=== PATIENT | male | born 1980 | race Caucasian/White ===

== ENCOUNTER 2016-09-14 02:09 | Inpatient (IN) | payer BC ==
[2016-09-14] MEDS ORDERED: NS 0.9% 1000 ML* 1,000 ML IV ONE ×2 (02:11→11:29)
[2016-09-14] MEDS ORDERED: Naloxone* 0.4 MG/ML 1 ML VIAL IV ONE (02:11)
--- NOTE | 2016-09-14 02:28 | ED ---
sai Kay Timothy, scribed for Dipak Price MD on 09/14/16 at 0216 . Substance Abuse/Use - HPI Summary HPI Summary: LEVEL V CAVEAT: Pt is unresponsive and unable to give an accurate Hx. Dawson Abbasi is a 35 yo male presenting to [facility] overdosed on morphine, oxycodon , and spiced rum. EMS states he attempted suicide. - History Of Current Complaint Stated Complaint: OVERDOSE Time Seen by Provider: 09/14/16 02:10 Hx Obtained From: Patient Onset/Duration of Drug/ETOH Abuse: Minutes Ingestion History: Type/Name Of Drug - morphine, oxycodone, EtOH Overdose Characteristics: Oral Severity Initially: Moderate Severity Currently: Moderate Character: Stuporous PMH/Surg Hx/FS Hx/Imm Hx - Family History Known Family History: Positive: Unknown - Pt is unable to give an accurate FHx - Additional Comments History Additional Comments: LEVEL V CAVEAT: PT IS UNABLE TO GIVE AN ACCURATE HX Review of Systems - ROS Summary Review of Systems Summary: LEVEL V CAVEAT: Pt is overdosed and unable to review systems All Other Systems Reviewed And Are Negative: No Physical Exam Triage Information Reviewed: Yes Vital Signs On Initial Exam: Initial Vitals Temp Pulse Resp BP Pulse Ox 98 F 62 16 119/98 98 09/14/16 02:10 09/14/16 02:10 09/14/16 02:10 09/14/16 02:10 09/14/16 02:10 Vital Signs Reviewed: Yes Completion Of Physical Exam Limited Due To: Altered Mental Status - easily arousable, Extremis Appearance: Positive: No Pain Distress Skin: Positive: Warm Eyes: Positive: SAQIB ENT: Positive: Hearing grossly normal Neck: Positive: Supple Respiratory/Lung Sounds: Positive: Breath Sounds Present Cardiovascular: Positive: RRR Abdomen Description: Positive: Nontender, Soft Bowel Sounds: Positive: Present Musculoskeletal: Positive: Strength/ROM Intact Diagnostics - Vital Signs Vital Signs Temp Pulse Resp BP Pulse Ox 09/14/16 02:10 98 F 62 16 119/98 98 - Laboratory Result Diagrams: 09/14/16 02:20 09/14/16 02:20 Lab Statement: Any lab studies that have been ordered have been reviewed, and results considered in the medical decision making process. - EKG 0215 Cardiac Rate: NL EKG Rhythm: Sinus Rhythm EKG Interpretation: NSR @88 BPM. Normal EKG. Re-Evaluation - Re-Evaluation First Eval Re-Evaluation Time: 06:00 - medically cleared, 90 minutes off narcan Change: Improved Course/Dx - Course Assessment/Plan: Dawson Abbasi is a 35 yo male presenting [facility] overdosed on morphine, oxycodone, and EtOH, per EMS. - Diagnoses Provider Diagnoses: Suicide attempt - Critical Care Time Critical Care Time: 75-104 min Discharge - Discharge Plan Condition: Fair Disposition: ADMITTED TO [facility] The documentation as recorded by the sai meeks Timothy accurately reflects the service I personally performed and the decisions made by , Dipak Price MD.
[2016-09-14 02:54] LABS: Hematocrit 46 % (42-52); Hemoglobin 16.1 g/dl (14.0-18.0); Mean Corpuscular HGB Conc 35 g/dl (31-36); Mean Corpuscular Hemoglobin 33 pg (27-31); Mean Corpuscular Volume 95 fL (80-94); Mean Platelet Volume 9 um3 (7.4-10.4); Red Blood Count 4.86 10^6/ul (4.0-5.4); Red Cell Distribution Width 14 % (10.5-15); White Blood Count 6.1 10^3/ul (3.5-10.8)
[2016-09-14] MEDS ORDERED: Naloxone* 2 MG in NS 0.9% 250 ML* 245 ML IV SCH (03:00)
[2016-09-14] MEDS ORDERED: NALOXONE DRIP for Opiate Reversal - ED ONLY IV SCH ×2 (03:00)
[2016-09-14 03:07] LABS: ALT 87 U/L (7-52); AST 45 U/L (13-39); Albumin 4.5 g/dL (3.2-5.2); Alkaline Phosphatase 52 U/L (34-104); Anion Gap 8 mmol/L (2-11); BUN/Creatinine Ratio 8.5 (8-20); Blood Urea Nitrogen 8 mg/dL (6-24); CO2 Carbon Dioxide 22 mmol/L (22-32); Calcium 9.1 mg/dL (8.6-10.3); Chloride 107 mmol/L (101-111); EGFR African American 116.1 (>60); EGFR Non-African American 90.3 (>60); Globulin 3.2 g/dL (2-4); Glucose 85 mg/dL (70-100); Potassium 3.4 mmol/L (3.5-5.0); Sodium 137 mmol/L (133-145); Total Protein 7.7 g/dL (6.4-8.9)
[2016-09-14 03:13] LABS: Acetaminophen < 15 mcg/mL; Alcohol 220 mg/dL (<10); Salicylate < 2.50 mg/dL (<30)
[2016-09-14] MEDS ORDERED: LORazepam TAB(*) 1 MG PO ONE (09:04)
[2016-09-14] MEDS ORDERED: Ondansetron INJ* 2 MG/ML VIAL ONE (11:24)
[2016-09-14] MEDS ORDERED: PROCHLORPERAZINE INJ 5 MG/ML 2 ML VIAL IV PRN (11:29)
[2016-09-14] MEDS ORDERED: Thiamine IV* 100 MG, Folic Acid IV* 1 MG, Multiple Vitamin IV ADULT* 10 ML in NS 0.9% 1... IV ONE (11:29)
[2016-09-14] MEDS ORDERED: Acetaminophen TAB* 325 MG PO PRN (11:29)
[2016-09-14] MEDS ORDERED: Potassium Chloride LIQUID* 20 MEQ PACKET PO ONE (11:33)
[2016-09-14] MEDS ORDERED: Albuterol 2.5 MG/3 ML NEB.SOL* (0.083%) INH PRN (11:43)
[2016-09-14] MEDS: Ondansetron INJ* 2 MG/ML VIAL IV PRN (11:49)
[2016-09-14 11:55] LABS: Hematocrit 46 % (42-52); Hemoglobin 15.6 g/dl (14.0-18.0); Mean Corpuscular HGB Conc 34 g/dl (31-36); Mean Corpuscular Hemoglobin 33 pg (27-31); Mean Corpuscular Volume 97 fL (80-94); Mean Platelet Volume 8 um3 (7.4-10.4); Red Blood Count 4.76 10^6/ul (4.0-5.4); Red Cell Distribution Width 13 % (10.5-15); White Blood Count 5.1 10^3/ul (3.5-10.8)
[2016-09-14] MEDS ORDERED: LORazepam INJ* 2 MG/ML 1 ML VIAL IV SCH (12:00)
[2016-09-14 12:11] LABS: EGFR African American 123.7 (>60); EGFR Non-African American 96.2 (>60); Potassium 3.6 mmol/L (3.5-5.0)
[2016-09-14] MEDS: KCL 10 MEQ/50 ML IVPREMIX* 10 MEQ/50 ML BAG IV SCH ×3 (13:56→18:26)
[2016-09-14] MEDS: LORazepam INJ* 2 MG/ML 1 ML VIAL IV SCH ×2 (13:58→21:35)
[2016-09-14] MEDS ORDERED: Heparin VIAL(*) 5000 UNITS/ML VIAL (FIVE THOUSAND) SUBCUT SCH (14:00)
[2016-09-14] MEDS: Nicotine PATCH 21 MG/24 HR* PATCH TRANSDERM SCH (14:07)
--- NOTE | 2016-09-14 14:31 | HP ---
HISTORY AND PHYSICAL: DATE OF ADMISSION: 09/14/2016. PRIMARY CARE PROVIDER: None. ATTENDANCE PHYSICAL WHILE IN THE HOSPITAL: Noé Darnell MD * (report dictated by Tri Castellano NP). CHIEF COMPLAINT: 1. Suicidal ideation. 2. EtOH abuse. HISTORY OF PRESENT ILLNESS: Mr. Abbais is a 35-year-old male patient; he has a history of asthma. In addition to this, he has a history of depression. He has had one suicide attempt in the past. He comes in today stating that he has been feeling more depressed over the last couple of weeks. He states his fiancee recently left him. In addition to this he recently lost his job and the stress was mounting to the point where he wanted to take his life. He does not remember what time he did this but he states, he took a handful of OxyContin and he took a handful of morphine and he drank enough alcohol so that he could take his life. Fortunately, a friend of his found him, called 911 and he was brought into the hospital last night. The patient did receive several doses of Narcan but because of the fact that he did take long extended acting morphine, MS Contin and OxyContin, it was felt that the hospitalist service should admit him for medical observation and also was noted in the ER that he was showing early signs of EtOH withdrawal which he has had in the past. He stated he does feel shaky. He has had hallucinations in the past with withdrawal but no seizures. He denies having any chest pain. He does state he feels nauseous and he has vomited a couple of times in the ER here today and he states that he was cramping. He denies having any recent cough, fevers, no shortness of breath. He denies any abdominal discomfort. He was evaluated again in the ER. There was concern that he was not medically stable for psychiatric evaluation, so the hospitalist service was asked to evaluate for admission. REVIEW OF SYSTEMS: There is no documented fever. He denied having any significant weight change. There was no double vision. There is no ear discharge. There is no rhinorrhea. There is no sore throat. No thyroid enlargement. Denies having any chest pain. There is no orthopnea and no nocturnal dyspnea. There is no abdominal pain. There was nausea. There was vomiting. There was no dysuria, no frequency. There is no loss of consciousness or pruritus. There are no skin ulcerations. Review of 14 systems completed, all others were negative. PAST MEDICAL HISTORY: Significant for; 1. Asthma. 2. Depression. PAST SURGICAL HISTORY: He has had a hernia repair. FAMILY HISTORY: Father has a history of psychiatric disorder, he is unsure as to what. The father also had history of heart disease. Mother's history was reviewed and is not contributory. SOCIAL HISTORY: He is a pack-a-day smoker. He smoked for 20 plus years. He does admit to using heroin, crack, and marijuana. Most recently he has used crack cocaine. The patient also does admit to drinking about a gallon of rum daily. He does admit to having history of DTs in the past as well. He does not appoint a surrogate decision maker at this point. ALLERGIES: His allergy to medications include an unknown type of anesthetic. HOME MEDICATIONS: Denied. PHYSICAL EXAMINATION GENERAL: At this time, Mr. Abbasi is a 35-year-old male patient, he appears well nourished, well developed. He does not appear to be in any acute distress. VITAL SIGNS: Blood pressure 127/75, pulse of 92, respirations 18, O2 sat 94% and his temperature was 98. HEENT: Head atraumatic, normocephalic. Eyes: EOMs intact. Sclerae anicteric. Throat: Oral mucosa appears to be moist. No pharyngeal erythema. NECK: Supple. HEART: Sounds S1, S2. Regular rate and rhythm. No murmurs, rubs or gallops. ABDOMEN: Soft, flat nontender. Bowel sounds present. EXTREMITIES: Pulses were 2+ throughout. Able to move all 4 extremities. 5/5 strength. NEUROLOGIC: The patient is awake. He is alert. He is oriented x3. Tongue is midline. No gross focal deficits. SKIN: Intact. DIAGNOSTIC STUDIES/LAB DATA: Labs today revealed a WBC of 6.1, RBC of 4.86, hemoglobin 16.1, hematocrit 46, and platelet count of 204. His sodium was 137, potassium 3.4, chloride of 107, bicarb 22, BUN 8, creatinine of 0.94, glucose 85 , lactate 2.2, calcium 9.1, total bili 0.4, AST 45, ALT 87, albumin 4.5. Toxicology showed a alcohol level of 220. Salicylates and acetaminophen were negative. He did have an EKG obtained today. Unfortunately, I do not have the previous one for comparison, but the EKG today showed a sinus rhythm at the rate of 88. He had an intraventricular conduction delay. He had minimal elevation in lead 2 only and lead 3 and aVF, but again no previous for comparison, may be early repol. Old medical records reviewed. ASSESSMENT AND PLAN: Mr. Abbasi is a 35-year-old male patient coming in to the ER today with complaints of suicidal ideation, now showing signs of EtOH withdrawal. In addition to this, also did take long-acting opiate. Hospitalist service was asked to evaluate for admission, he will be admitted under observation status for: 1. Overdose: At this point, we will go ahead and monitor his respiratory status. We will put him on continuous pulse ox for 24 hours to monitor. He appears to be awake now and alert. He had no drowsiness, so we will continue to monitor. Due to the suicidal ideation, I will put him on one-to-one suicide watch. In addition to this, we will get a psychiatric consult when able. 2. EtOH withdrawal: He is exhibiting early signs. He is a little tremulous. He does have some nausea and vomiting, which again may be related to the opiates and the alcohol withdrawal. At this point, I will go ahead and put him on Protonix IV daily, put him on the WAM protocol. In addition to this we will give him a banana bag. We will go ahead and initiate the standing Ativan as well. We will hydrate the patient and we will continue to monitor. 3. Depression. Again, I will get a consult from psychiatric services. 4. Asthma. I have ordered p.r.n. albuterol. 5. DVT prophylaxis. We will place him on SCDs. 6. Tobacco abuse. I have ordered a Nicotine patch. 7. Cramping. Again, this is probably related to hypokalemia. I am also checking his magnesium, I am going to replace his potassium with IV and p.o. potassium. We will hydrate him and we will give him banana bag and we will continue to follow. 8. Elevated LFTs probably secondary to EtOH use. We will monitor these. We will repeat them in the morning. 9. Code status: Full code. TIME SPENT: Time spent on admission was approximately 60 minutes; greater than half the time time was spent [id number] with the patient obtaining my history and physical, the other half time is spent going over the plan of the care patient and implementing plan of care. I discussed the plan of care with my attending, Dr. Darnell. He is in agreement. TRI CASTELLANO, FURNACE CHARGER [id number]/[facility] #: [id number] KEVIN
[2016-09-14] MEDS: Pantoprazole IV* 40 MG IV SCH (14:58)
[2016-09-14] MEDS: NS 0.9% 1000 ML* 1,000 ML IV SCH (15:55)
[2016-09-14] MEDS ORDERED: KCL 10 MEQ/50 ML IVPREMIX* 10 MEQ/50 ML BAG ONE (18:22)
[2016-09-14] MEDS: Nicotine Patch Removal NOTE FOLLOW UP SCH (21:36)
[2016-09-15] MEDS: NS 0.9% 1000 ML* 1,000 ML IV SCH ×3 (01:50→21:36)
[2016-09-15] MEDS: LORazepam INJ* 2 MG/ML 1 ML VIAL IV SCH ×2 (05:30→17:00)
[2016-09-15 06:24] LABS: Hematocrit 42 % (42-52); Hemoglobin 14.1 g/dl (14.0-18.0); Mean Corpuscular HGB Conc 34 g/dl (31-36); Mean Corpuscular Hemoglobin 33 pg (27-31); Mean Corpuscular Volume 97 fL (80-94); Mean Platelet Volume 8 um3 (7.4-10.4); Red Blood Count 4.32 10^6/ul (4.0-5.4); Red Cell Distribution Width 13 % (10.5-15)
[2016-09-15 06:36] LABS: Albumin 3.3 g/dL (3.2-5.2); BUN/Creatinine Ratio 12.9 (8-20); Calcium 8.5 mg/dL (8.6-10.3); Direct Bilirubin 0.1 mg/dL (0.03-0.18); EGFR African American 117.6 (>60); EGFR Non-African American 91.4 (>60); Globulin 2.5 g/dL (2-4); Indirect Bilirubin 0.6 mg/dL (0.3-1.0); Potassium 3.8 mmol/L (3.5-5.0); Total Bilirubin 0.7 mg/dL (0.2-1.0); Total Protein 5.8 g/dL (6.4-8.9)
[2016-09-15] MEDS: Nicotine PATCH 21 MG/24 HR* PATCH TRANSDERM SCH (09:26)
[2016-09-15] MEDS: Multivitamins/Minerals TAB PO SCH (09:26)
[2016-09-15] MEDS: Thiamine TAB* 100 MG TAB PO SCH (09:26)
[2016-09-15] MEDS: Folic Acid TAB* 1 MG PO SCH (09:27)
[2016-09-15] MEDS: Acetaminophen TAB* 325 MG PO PRN (12:58)
[2016-09-15] MEDS: Ondansetron INJ* 2 MG/ML VIAL IV PRN ×2 (12:59→21:31)
[2016-09-15] MEDS: Pantoprazole IV* 40 MG IV SCH (12:59)
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
--- NOTE | 2016-09-15 15:37 | PN ---
Subjective Date of Service: 09/15/16 Interval History: Patient seen and examined at bedside. Pt denies suicidal ideation at this time. Denies fever, chills, chest discomfort, V/D. Pt reports shortness of breath at his baseline, and continues to have nausea. Family History: Unchanged from Admission Social History: Unchanged from Admission Past Medical History: Unchanged from Admission Objective Active Medications: Acetaminophen (Tylenol Tab*) 650 mg PO Q4H PRN Reason: FEVER/PAIN Albuterol (Ventolin 2.5 Mg/3 Ml Neb.Stella*) 2.5 mg INH Q2H PRN Reason: SOB/ WHEEZING Folic Acid (Folvite Tab*) 1 mg PO DAILY [facility] Naloxone HCl 2 mg/ Sodium (Chloride) 250 mls @ 60 mls/hr IV .PER RATE [facility] Reason: Protocol Sodium Chloride (Ns 0.9% 1000 Ml*) 1,000 mls @ 100 mls/hr IV PER RATE [facility] Lorazepam (Ativan Inj*) 0 mg IV .PER WAM SCORE [facility] Lorazepam (Ativan Inj*) 1 mg IV Q12H [facility] Taper Stop: 09/17/16 07:59 Multivitamins/Minerals (Theragran/Minerals Tab*) 1 tab PO DAILY [facility] Nicotine (Nicotine Patch 21 Mg/24 Hr*) 1 patch TRANSDERM Q24HR [facility] Ondansetron HCl (Zofran Inj*) 4 mg IV Q6H PRN Reason: NAUSEA Pantoprazole Sodium (Protonix Iv*) 40 mg IV Q24H [facility] Pharmacy Profile Note (Nicotine Patch Removal Note*) 1 note FOLLOW UP 2100 [facility] Prochlorperazine Edisylate (Compazine Inj*) 5 mg IV Q6H PRN Reason: NAUSEA/ VOMITING Thiamine HCl (Vitamin B-1 Tab*) 100 mg PO DAILY [facility] Vital Signs 09/15/16 15:13 Pulse Rate 96 Respiratory 16 Rate O2 Sat by Pulse 95 Oximetry Oxygen Devices in Use Now: None Eyes: No Scleral Icterus, PERRLA Ears/Nose/Mouth/Throat: NL Teeth, Lips, Gums, Mucous Membranes Moist Neck: NL Appearance and Movements; NL JVP, Trachea Midline Respiratory: Symmetrical Chest Expansion and Respiratory Effort, Clear to Auscultation Cardiovascular: NL Sounds; No Murmurs; No JVD, RRR Abdominal: NL Sounds; No Tenderness; No Distention Extremities: No Edema Skin: No Rash or Ulcers Neurological: Alert and Oriented x 3, NL Muscle Strength and Tone Lines/Tubes/Other Access: Clean, Dry and Intact Peripheral IV - site benign Nutrition: Taking PO's Result Diagrams: 09/15/16 05:58 09/15/16 05:58 Assess/Plan/Problems-Billing Assessment: Mr. Abbasi is a 35 yo male with PMH significant for asthma and depression who presented to the emergency room for suicidal ideation and overdose of oxycontin and morphine and was found to have signs of alcohol withdrawal. - Patient Problems (1) Overdose Code(s): T50.901A - POISONING BY UNSP DRUG/MEDS/BIOL SUBST, ACCIDENTAL, INIT SNOMED Code(s): 10412362 Comment: - Psychiatric consult, input appreciated - Pt denies suicidal ideation at this time - D/C 1:1 - Will trial medications for depression per Psychiatry - No signs of respiratory distress at this time (2) Alcohol withdrawal Code(s): F10.239 - ALCOHOL DEPENDENCE WITH WITHDRAWAL, UNSPECIFIED SNOMED Code (s): 955578759 Comment: - WAM score 1-8 (8 was upon arrival to the unit yesterday) - Continue WAM protocol at this time (3) Depression Code(s): F32.9 - MAJOR DEPRESSIVE DISORDER, SINGLE EPISODE, UNSPECIFIED SNOMED Code(s): 37644327 Comment: - Appreciate Psychiatric input - Trial Sertraline and Quetiapine per Psychiatry (4) Asthma Code(s): J45.909 - UNSPECIFIED ASTHMA, UNCOMPLICATED SNOMED Code(s): 451408359 Comment: - Pt reports shortness of breath at baseline - Continue PRN albuterol (5) Nicotine abuse Code(s): Z72.0 - TOBACCO USE SNOMED Code(s): 06329508 Comment: - Continue Nicotine Patch (6) DVT prophylaxis Code(s): LKP2309 - SNOMED Code(s): 898061128 Comment: - SCDs (7) Full code status Code(s): Z78.9 - OTHER SPECIFIED HEALTH STATUS SNOMED Code(s): 193285825 Status and Disposition: OBV to Inpatient. Plan for discharge to Inpatient drug and alcohol treatment center.
[2016-09-15] MEDS: Sertraline* 50 MG TAB PO SCH (16:59)
[2016-09-15] MEDS ORDERED: QUEtiapine TAB* 100 MG PO SCH (21:00)
[2016-09-15] MEDS: Nicotine Patch Removal NOTE FOLLOW UP SCH (21:31)
[2016-09-16] MEDS: LORazepam INJ* 2 MG/ML 1 ML VIAL IV SCH ×2 (03:44→16:29)
[2016-09-16] MEDS: NS 0.9% 1000 ML* 1,000 ML IV SCH (08:43)
[2016-09-16] MEDS: Sertraline* 50 MG TAB PO SCH (08:44)
[2016-09-16] MEDS: Thiamine TAB* 100 MG TAB PO SCH (08:44)
[2016-09-16] MEDS: Multivitamins/Minerals TAB PO SCH (08:44)
[2016-09-16] MEDS: Folic Acid TAB* 1 MG PO SCH (08:44)
[2016-09-16] MEDS: Nicotine PATCH 21 MG/24 HR* PATCH TRANSDERM SCH (08:45)
[2016-09-16] MEDS: Acetaminophen TAB* 325 MG PO PRN (13:41)
[2016-09-16] MEDS: Pantoprazole IV* 40 MG IV SCH (13:41)
--- NOTE | 2016-09-16 15:56 | CONSULT ---
Identification - Patient Identification Reason for Psychiatric Consultation: Suicidal Ideation -: Patient is a 35 year old, M admitted on 09/15/16. - MHU Identification Employment Status: Unemployed Hx Psychiatric Hospitalization: No History - Objective HPI: The patient reports that he is tolerating his new medications, quetiapine and sertraline, well and denies untoward effects. He continues to report resolution of the suicidal ideations he initially presented with, and is still requesting transfer to a substance abuse rehab facility. His affect does appear brighter today and he is talking, apparently, with his ex-girlfriend on the cell phone as I enter. The patient continues to sleep poorly and is in favor of increasing his quetiapine dose tonight. Paranoia is still present, although reduced. Exam Appearance: Well Developed/Nourished Hygiene: Normal Grooming: Disheveled Psychomotor Activities: Normal Exhibits Abnormal Movement: No Attitude and Relatedness: Cooperative Eye Contact: Good - Speech Quality: Unpressured Latencies: Normal Quantity: Appropriate Patient's Decription of Mood: "Okay" Observed Affect: Fair Affect Consistent with: Euthymia Patient's Thought Process: Coherent Thought Content: Yes Paranoid Ideation, No Passive Wish, No Suicidal Planning, No Homicidal Ideation Experiencing Hallucinations: No, Sensorium is Clear Type of Hallucinations: Visual: No, Auditory: No, Command: No Level of Consciousness: Alert Orientation: Yes Intact, Yes Orientated to Time, Yes Orientated to Place, Yes Orientated to Person Impulse Control: Tenuous Insight and Judgement: Fair Impression - Impression Clinical Impression: 35 y.o. single, white male with a history of polysubstance abuse and chronic paranoia, even when sober, is admitted to medicine in acute alcohol withdrawal and is being consulted on by psychiatry due to dysthymic mood, persecutory ideations and SI. Merits Inpatient Hospitalization: No Problem List - MHU Problems Type of Problem: Mood Status of Problem: Active Plan - Treatment Plan Treatment Plan: We have started the patient on quetiapine and sertraline to treat apparent schizoaffective disorder. We'll increase quetiapine tonight to 200mg PO qhs and see if this helps with insomnia and paranoia. The patient drug and alcohol abuse problems are out of control and he awaits referral to an inpatient drug rehab setting. Psychiatry will continue to follow. Continued Medication Management: Start Medication Medications: Current Medications Acetaminophen (Tylenol Tab*) 650 mg PO Q4H PRN PRN Reason: FEVER/PAIN Last Admin: 09/16/16 13:41 Dose: 650 mg Albuterol (Ventolin 2.5 Mg/3 Ml Neb.Stella*) 2.5 mg INH Q2H PRN PRN Reason: SOB/WHEEZING Folic Acid (Folvite Tab*) 1 mg PO DAILY [facility] Last Admin: 09/16/16 08:44 Dose: 1 mg Naloxone HCl 2 mg/ Sodium (Chloride) 250 mls @ 60 mls/hr IV .PER RATE [facility] PRN Reason: Protocol Last Admin: 09/14/16 02:45 Dose: 60 mls/hr Sodium Chloride (Ns 0.9% 1000 Ml*) 1,000 mls @ 100 mls/hr IV PER RATE [facility] Last Admin: 09/16/16 08:43 Dose: 100 mls/hr Lorazepam (Ativan Inj*) 0 mg IV .PER WAM SCORE [facility] PRN Reason: Protocol Last Admin: 09/14/16 14:01 Dose: 1 mg Lorazepam (Ativan Inj*) 1 mg IV Q12H [facility] PRN Reason: Taper Stop: 09/17/16 07:59 Last Admin: 09/16/16 03:44 Dose: 1 mg Multivitamins/Minerals (Theragran/Minerals Tab*) 1 tab PO DAILY [facility] Last Admin: 09/16/16 08:44 Dose: 1 tab Nicotine (Nicotine Patch 21 Mg/24 Hr*) 1 patch TRANSDERM Q24HR [facility] Last Admin: 09/16/16 08:45 Dose: 1 patch Ondansetron HCl (Zofran Inj*) 4 mg IV Q6H PRN PRN Reason: NAUSEA Last Admin: 09/15/16 21:31 Dose: 4 mg Pantoprazole Sodium (Protonix Iv*) 40 mg IV Q24H [facility] Last Admin: 09/16/16 13:41 Dose: 40 mg Pharmacy Profile Note (Nicotine Patch Removal Note*) 1 note FOLLOW UP 2100 [facility] Last Admin: 09/15/16 21:31 Dose: 1 note Prochlorperazine Edisylate (Compazine Inj*) 5 mg IV Q6H PRN PRN Reason: NAUSEA/VOMITING Last Admin: 09/14/16 13:53 Dose: 5 mg Quetiapine Fumarate (Seroquel Tab*) 100 mg PO BEDTIME [facility] Last Admin: 09/15/16 21:31 Dose: 100 mg Sertraline HCl (Zoloft*) 50 mg PO DAILY [facility] Last Admin: 09/16/16 08:44 Dose: 50 mg Thiamine HCl (Vitamin B-1 Tab*) 100 mg PO DAILY [facility] Last Admin: 09/16/16 08:44 Dose: 100 mg - Discharge Plan Discharge Plan: Drug/Alcohol Rehab
--- NOTE | 2016-09-16 18:47 | PN ---
Subjective Date of Service: 09/16/16 Interval History: Patient seen and examined at bedside. Pt states that is no longer suicidal. Pt states that he has been talking with his girlfriend and he may be interested in outpatient rehab. Denies fever, chills, shortness of breath, chest discomfort, V /D. Pt reports insomnia, mild tremors and nausea. Family History: Unchanged from Admission Social History: Unchanged from Admission Past Medical History: Unchanged from Admission Objective Active Medications: Acetaminophen (Tylenol Tab*) 650 mg PO Q4H PRN Reason: FEVER/PAIN Albuterol (Ventolin 2.5 Mg/3 Ml Neb.Stella*) 2.5 mg INH Q2H PRN Reason: SOB/ WHEEZING Folic Acid (Folvite Tab*) 1 mg PO DAILY [facility] Naloxone HCl 2 mg/ Sodium (Chloride) 250 mls @ 60 mls/hr IV .PER RATE [facility] Reason: Protocol Sodium Chloride (Ns 0.9% 1000 Ml*) 1,000 mls @ 100 mls/hr IV PER RATE [facility] Lorazepam (Ativan Inj*) 0 mg IV .PER WAM SCORE [facility] Lorazepam (Ativan Inj*) 0.5 mg IV Q12H [facility] Taper Stop: 09/17/16 07:59 Multivitamins/Minerals (Theragran/Minerals Tab*) 1 tab PO DAILY [facility] Nicotine (Nicotine Patch 21 Mg/24 Hr*) 1 patch TRANSDERM Q24HR [facility] Ondansetron HCl (Zofran Inj*) 4 mg IV Q6H PRN Reason: NAUSEA Pantoprazole Sodium (Protonix Iv*) 40 mg IV Q24H [facility] Pharmacy Profile Note (Nicotine Patch Removal Note*) 1 note FOLLOW UP 2100 [facility] Prochlorperazine Edisylate (Compazine Inj*) 5 mg IV Q6H PRN Reason: NAUSEA/ VOMITING Quetiapine Fumarate (Seroquel Tab*) 200 mg PO BEDTIME [facility] Sertraline HCl (Zoloft*) 50 mg PO DAILY [facility] Thiamine HCl (Vitamin B-1 Tab*) 100 mg PO DAILY [facility] Vital Signs 09/15/16 09/15/16 09/15/16 20:00 20:44 22:48 Temperature 98.0 F 98.2 F Pulse Rate 74 94 Respiratory 22 22 20 Rate Blood Pressure 134/76 119/68 (mmHg) O2 Sat by Pulse 96 96 Oximetry 09/16/16 09/16/16 09/16/16 00:46 02:57 03:32 Temperature 98.1 F 97.9 F Pulse Rate 73 60 83 Respiratory 20 16 18 Rate Blood Pressure 114/51 116/76 152/73 (mmHg) O2 Sat by Pulse 98 97 96 Oximetry 09/16/16 09/16/16 09/16/16 03:44 04:44 04:53 Temperature 97.6 F Pulse Rate 62 Respiratory 18 16 14 Rate Blood Pressure 109/56 (mmHg) O2 Sat by Pulse 97 Oximetry 09/16/16 09/16/16 09/16/16 05:08 07:02 08:00 Temperature 97.5 F Pulse Rate 87 77 Respiratory 16 18 18 Rate Blood Pressure 111/69 (mmHg) O2 Sat by Pulse 96 96 Oximetry 09/16/16 09/16/16 09/16/16 09:32 11:00 13:35 Temperature 97.6 F 98.0 F 97.8 F Pulse Rate 84 94 93 Respiratory 18 18 16 Rate Blood Pressure 138/78 132/76 124/75 (mmHg) O2 Sat by Pulse 97 95 95 Oximetry Oxygen Devices in Use Now: None Appearance: NAD, laying in bed Eyes: No Scleral Icterus, PERRLA Ears/Nose/Mouth/Throat: NL Teeth, Lips, Gums, Mucous Membranes Moist Neck: NL Appearance and Movements; NL JVP, Trachea Midline Respiratory: Symmetrical Chest Expansion and Respiratory Effort, Clear to Auscultation Cardiovascular: NL Sounds; No Murmurs; No JVD, RRR Abdominal: NL Sounds; No Tenderness; No Distention Extremities: No Edema Skin: No Rash or Ulcers Neurological: Alert and Oriented x 3, NL Muscle Strength and Tone Lines/Tubes/Other Access: Clean, Dry and Intact Peripheral IV - site benign Nutrition: Taking PO's Result Diagrams: 09/15/16 05:58 09/15/16 05:58 Assess/Plan/Problems-Billing Assessment: Mr. Abbasi is a 35 yo male with PMH significant for asthma and depression who presented to the emergency room for suicidal ideation and overdose of oxycontin and morphine and was found to have signs of alcohol withdrawal. - Patient Problems (1) Overdose Code(s): T50.901A - POISONING BY UNSP DRUG/MEDS/BIOL SUBST, ACCIDENTAL, INIT SNOMED Code(s): 38261992 Comment: - Psychiatric consult, input appreciated - Pt denies suicidal ideation at this time - Medications for depression per Psychiatry - No signs of respiratory distress at this time (2) Alcohol withdrawal Code(s): F10.239 - ALCOHOL DEPENDENCE WITH WITHDRAWAL, UNSPECIFIED SNOMED Code (s): 615504653 Comment: - WAM score 1-5 today - Continue WAM protocol at this time, now Q4H (3) Depression Code(s): F32.9 - MAJOR DEPRESSIVE DISORDER, SINGLE EPISODE, UNSPECIFIED SNOMED Code(s): 67422032 Comment: - Appreciate Psychiatric input - Trial Sertraline and Quetiapine per Psychiatry (4) Asthma Code(s): J45.909 - UNSPECIFIED ASTHMA, UNCOMPLICATED SNOMED Code(s): 528870738 Comment: - Pt reports shortness of breath at baseline - Continue PRN albuterol (5) Nicotine abuse Code(s): Z72.0 - TOBACCO USE SNOMED Code(s): 17147156 Comment: - Continue Nicotine Patch (6) DVT prophylaxis Code(s): AVK6876 - SNOMED Code(s): 030408323 Comment: - SCDs (7) Full code status Code(s): Z78.9 - OTHER SPECIFIED HEALTH STATUS SNOMED Code(s): 234242501 Status and Disposition: Inpatient. Plan for discharge to Inpatient drug and alcohol treatment center.
[2016-09-16] MEDS ORDERED: QUEtiapine TAB* 100 MG PO SCH (21:00)
[2016-09-16] MEDS: Nicotine Patch Removal NOTE FOLLOW UP SCH (21:27)
[2016-09-17] MEDS: LORazepam INJ* 2 MG/ML 1 ML VIAL IV SCH (04:03)
[2016-09-17] MEDS: Thiamine TAB* 100 MG TAB PO SCH (09:56)
[2016-09-17] MEDS: Multivitamins/Minerals TAB PO SCH (09:56)
[2016-09-17] MEDS: Folic Acid TAB* 1 MG PO SCH (09:56)
[2016-09-17] MEDS: Nicotine PATCH 21 MG/24 HR* PATCH TRANSDERM SCH (09:56)
[2016-09-17] MEDS: Sertraline* 50 MG TAB PO SCH (09:56)
--- NOTE | 2016-09-17 10:34 | CONSULT ---
Identification - Patient Identification Reason for Psychiatric Consultation: Suicidal Ideation -: Patient is a 35 year old, M admitted on 09/15/16. - MHU Identification Employment Status: Unemployed Hx Psychiatric Hospitalization: Yes History - Objective HPI: The patient continues to appear brighter and more future-oriented. He reports that the quetiapine is "evening me out a lot." His sleep and paranoia problems are improved and he is also tolerating the sertraline well. This morning he reports to me that he has had substantial contact with his ex-girlfriend, who had previously ended their relationship due to his unrestrained use of drugs and alcohol. "She says she's willing to work it out if I go outpatient up in [place]." Specifically, he's talking about the [facility] , where he'd prefer to get MH and substance abuse treatment after discharge. The patient is advised that his odds of recovery would be somewhat better if he were to go ahead with inpatient rehab but he declines this, stating "I gotta get back to my life and start bringing in some money. I feel better Doc, I really do." Mr. Rice is notified that I will speak to his primary team about this. He denies SI or HI again today. Exam Appearance: Well Developed/Nourished Hygiene: Normal Grooming: Fairly Well Kept Psychomotor Activities: Normal Exhibits Abnormal Movement: No Attitude and Relatedness: Cooperative Eye Contact: Good - Speech Quality: Unpressured Latencies: Normal Quantity: Appropriate Patient's Decription of Mood: "Okay" Observed Affect: Fair Affect Consistent with: Euthymia Patient's Thought Process: Coherent Thought Content: No Passive Wish, No Suicidal Planning, No Homicidal Ideation, No Paranoid Ideation Experiencing Hallucinations: No, Sensorium is Clear Type of Hallucinations: Visual: No, Auditory: No, Command: No Level of Consciousness: Alert Orientation: Yes Intact, Yes Orientated to Time, Yes Orientated to Place, Yes Orientated to Person Impulse Control: Tenuous Insight and Judgement: Fair Impression - Impression Clinical Impression: 35 y.o. single, white male with a history of polysubstance abuse and chronic paranoia, even when sober, is admitted to medicine in acute alcohol withdrawal and is being consulted on by psychiatry due to dysthymic mood, persecutory ideations and SI. Merits Inpatient Hospitalization: No Problem List - MHU Problems Type of Problem: Mood Status of Problem: Resolved Plan - Treatment Plan Treatment Plan: We have started the patient on quetiapine and sertraline to treat apparent schizoaffective disorder. He is symptomatically improved, largely secondary to effective detoxification performed by primary team. Up until this point he had accepted referral to inpatient rehab, although, he is now declining this in favor of outpatient follow up. This clinician is fine with this, provided he is committed to recovery. Recommend d/c to outpatient SA and MH treatment in the community in accordance with his preference. Psychiatry will sign off. Continued Medication Management: Start Medication Medications: Current Medications Acetaminophen (Tylenol Tab*) 650 mg PO Q4H PRN PRN Reason: FEVER/PAIN Last Admin: 09/16/16 13:41 Dose: 650 mg Albuterol (Ventolin 2.5 Mg/3 Ml Neb.Stella*) 2.5 mg INH Q2H PRN PRN Reason: SOB/WHEEZING Folic Acid (Folvite Tab*) 1 mg PO DAILY [facility] Last Admin: 09/17/16 09:56 Dose: 1 mg Naloxone HCl 2 mg/ Sodium (Chloride) 250 mls @ 60 mls/hr IV .PER RATE [facility] PRN Reason: Protocol Last Admin: 09/14/16 02:45 Dose: 60 mls/hr Lorazepam (Ativan Inj*) 0 mg IV .PER WAM SCORE [facility] PRN Reason: Protocol Last Admin: 09/14/16 14:01 Dose: 1 mg Multivitamins/Minerals (Theragran/Minerals Tab*) 1 tab PO DAILY [facility] Last Admin: 09/17/16 09:56 Dose: 1 tab Nicotine (Nicotine Patch 21 Mg/24 Hr*) 1 patch TRANSDERM Q24HR [facility] Last Admin: 09/17/16 09:56 Dose: 1 patch Ondansetron HCl (Zofran Inj*) 4 mg IV Q6H PRN PRN Reason: NAUSEA Last Admin: 09/15/16 21:31 Dose: 4 mg Pantoprazole Sodium (Protonix Iv*) 40 mg IV Q24H [facility] Last Admin: 09/16/16 13:41 Dose: 40 mg Pharmacy Profile Note (Nicotine Patch Removal Note*) 1 note FOLLOW UP 2100 [facility] Last Admin: 09/16/16 21:27 Dose: 1 note Prochlorperazine Edisylate (Compazine Inj*) 5 mg IV Q6H PRN PRN Reason: NAUSEA/VOMITING Last Admin: 09/14/16 13:53 Dose: 5 mg Quetiapine Fumarate (Seroquel Tab*) 200 mg PO BEDTIME [facility] Last Admin: 09/16/16 21:22 Dose: 200 mg Sertraline HCl (Zoloft*) 50 mg PO DAILY [facility] Last Admin: 09/17/16 09:56 Dose: 50 mg Thiamine HCl (Vitamin B-1 Tab*) 100 mg PO DAILY [facility] Last Admin: 09/17/16 09:56 Dose: 100 mg - Discharge Plan Discharge Plan: Drug/Alcohol Rehab
[2016-09-17 11:24] VITALS: BP 143/86
[2016-09-17] MEDS: Pantoprazole IV* 40 MG IV SCH (12:10)
--- NOTE | 2016-09-17 13:23 | PN ---
Subjective Date of Service: 09/17/16 Interval History: Pt is feeling well. He would like to go home and follow up for outpatient mental health and substance abuse care. Objective Active Medications: Acetaminophen (Tylenol Tab*) 650 mg PO Q4H PRN PRN Reason: FEVER/PAIN Last Admin: 09/16/16 13:41 Dose: 650 mg Albuterol (Ventolin 2.5 Mg/3 Ml Neb.Stella*) 2.5 mg INH Q2H PRN PRN Reason: SOB/WHEEZING Folic Acid (Folvite Tab*) 1 mg PO DAILY [facility] Last Admin: 09/17/16 09:56 Dose: 1 mg Naloxone HCl 2 mg/ Sodium (Chloride) 250 mls @ 60 mls/hr IV .PER RATE [facility] PRN Reason: Protocol Last Admin: 09/14/16 02:45 Dose: 60 mls/hr Lorazepam (Ativan Inj*) 0 mg IV .PER WAM SCORE [facility] PRN Reason: Protocol Last Admin: 09/14/16 14:01 Dose: 1 mg Multivitamins/Minerals (Theragran/Minerals Tab*) 1 tab PO DAILY [facility] Last Admin: 09/17/16 09:56 Dose: 1 tab Nicotine (Nicotine Patch 21 Mg/24 Hr*) 1 patch TRANSDERM Q24HR [facility] Last Admin: 09/17/16 09:56 Dose: 1 patch Ondansetron HCl (Zofran Inj*) 4 mg IV Q6H PRN PRN Reason: NAUSEA Last Admin: 09/15/16 21:31 Dose: 4 mg Pantoprazole Sodium (Protonix Iv*) 40 mg IV Q24H [facility] Last Admin: 09/17/16 12:10 Dose: 40 mg Pharmacy Profile Note (Nicotine Patch Removal Note*) 1 note FOLLOW UP 2100 [facility] Last Admin: 09/16/16 21:27 Dose: 1 note Prochlorperazine Edisylate (Compazine Inj*) 5 mg IV Q6H PRN PRN Reason: NAUSEA/VOMITING Last Admin: 09/14/16 13:53 Dose: 5 mg Quetiapine Fumarate (Seroquel Tab*) 200 mg PO BEDTIME [facility] Last Admin: 09/16/16 21:22 Dose: 200 mg Sertraline HCl (Zoloft*) 50 mg PO DAILY [facility] Last Admin: 09/17/16 09:56 Dose: 50 mg Thiamine HCl (Vitamin B-1 Tab*) 100 mg PO DAILY [facility] Last Admin: 09/17/16 09:56 Dose: 100 mg Vital Signs 09/16/16 09/16/16 09/16/16 13:35 16:29 17:29 Temperature 97.8 F Pulse Rate 93 Respiratory 16 18 18 Rate Blood Pressure 124/75 (mmHg) O2 Sat by Pulse 95 Oximetry 09/16/16 09/16/16 09/17/16 20:00 21:31 00:59 Temperature 98.1 F 97.8 F Pulse Rate 81 80 Respiratory 20 20 16 Rate Blood Pressure 135/83 115/75 (mmHg) O2 Sat by Pulse 96 95 Oximetry 09/17/16 09/17/16 09/17/16 04:03 04:06 05:03 Temperature 97.5 F Pulse Rate 77 Respiratory 16 16 16 Rate Blood Pressure 136/83 (mmHg) O2 Sat by Pulse 96 Oximetry 09/17/16 09/17/16 09/17/16 05:13 07:16 08:00 Temperature 97.7 F Pulse Rate 104 68 Respiratory 16 17 16 Rate Blood Pressure 115/65 (mmHg) O2 Sat by Pulse 95 97 Oximetry 09/17/16 09/17/16 10:29 11:14 Temperature 97.6 F Pulse Rate 78 98 Respiratory 16 16 Rate Blood Pressure 143/86 (mmHg) O2 Sat by Pulse 98 94 Oximetry Oxygen Devices in Use Now: None Appearance: Young male sitting on the edge of the bed, NAD Eyes: No Scleral Icterus Ears/Nose/Mouth/Throat: Mucous Membranes Moist Respiratory: Symmetrical Chest Expansion and Respiratory Effort, Clear to Auscultation Cardiovascular: NL Sounds; No Murmurs; No JVD, RRR, No Edema Abdominal: NL Sounds; No Tenderness; No Distention Extremities: No Clubbing, Cyanosis Skin: No Rash or Ulcers, No Nodules or Sclerosis Neurological: Alert and Oriented x 3 Result Diagrams: 09/15/16 05:58 09/15/16 05:58 Assess/Plan/Problems-Billing Mr. Abbasi is a 35 yo male with PMH significant for asthma and depression who presented to the emergency room for suicidal ideation and overdose of oxycontin and morphine and was found to have signs of alcohol withdrawal. - Patient Problems (1) Overdose Current Visit: Yes Status: Acute Code(s): T50.901A - POISONING BY UNSP DRUG/ MEDS/BIOL SUBST, ACCIDENTAL, INIT SNOMED Code(s): 85797969 Comment: Improved from the overdose. Inpatient psychiatric care not needed at this time. He will follow up at [facility]. (2) Depression Current Visit: Yes Status: Acute Code(s): F32.9 - MAJOR DEPRESSIVE DISORDER , SINGLE EPISODE, UNSPECIFIED SNOMED Code(s): 73077082 Comment: Continue sertraline and seroquel. He feels better on these medications. He will contact [facility] to set up outpatient evaluation. (3) Alcohol withdrawal Current Visit: Yes Status: Acute Code(s): F10.239 - ALCOHOL DEPENDENCE WITH WITHDRAWAL, UNSPECIFIED SNOMED Code(s): 641673342 Comment: No clinical signs of EtOH withdrawal. Pt is stable for d/c home. Encourage abstinence. (4) Nicotine abuse Current Visit: Yes Status: Chronic Code(s): Z72.0 - TOBACCO USE SNOMED Code(s): 26715760 Comment: Encourage smoking cessation. (5) Asthma Current Visit: No Status: Chronic Code(s): J45.909 - UNSPECIFIED ASTHMA, UNCOMPLICATED SNOMED Code(s): 151266704 Comment: No c/o SOB at this time. (6) DVT prophylaxis Current Visit: Yes Status: Acute Code(s): ENP1089 - SNOMED Code(s): 596704795 Comment: SCDs (7) Full code status Current Visit: Yes Status: Acute Code(s): Z78.9 - OTHER SPECIFIED HEALTH STATUS SNOMED Code(s): 993759572 Status and Disposition: d/c home
--- NOTE | 2016-09-18 01:05 | DS ---
DISCHARGE SUMMARY: DATE OF ADMISSION: 09/14/16 DATE OF DISCHARGE: 09/17/16 PRIMARY CARE PROVIDER: Unknown. PRINCIPAL DIAGNOSIS: Suicidal ideation and polysubstance abuse with narcotic overdose. SECONDARY DIAGNOSES: 1. Depression. 2. Polysubstance abuse. DISCHARGE MEDICATIONS: 1. Thiamine 100 mg p.o. daily. 2. Sertraline 50 mg p.o. daily. 3. Seroquel 200 mg p.o. q.h.s. 4. Multivitamin 1 tab p.o. daily. 5. Folic acid 1 mg p.o. daily. 6. Tylenol 650 mg p.o. q.4 hours p.r.n. pain. HOSPITAL COURSE: Mr. Rice is a 35-year-old male who presented to the emergency room on 09/14/16 with complaints of suicidal ideation and alcohol abuse. The patient had been feeling more depressed over a couple of weeks prior to admission. His fiancee had recently left him. He ultimately took a handful of OxyContin and a handful of morphine and drank enough alcohol so that he could take his life. A friend found him and brought him to the emergency room. The patient received several doses of Narcan, and woke up with this. The patient was admitted for further management. The patient was seen in consultation by Dr. Duggan from Psychiatry. It was felt that the patient was not likely acutely in any danger of harming himself. He seemed very much future oriented and focused on sobriety. It was felt that he should be started on Zoloft as well as Seroquel. Additionally, it was felt that the patient would benefit from inpatient drug and alcohol rehab. The patient was initially agreeable to this; however, on 09/17/16, the patient ultimately decided he wished to be discharged home and follow up with outpatient rehab. Dr. Duggan saw the patient also on the day of discharge and felt that this was a safe plan. The patient was felt to have symptomatically improved. The patient has been provided the information for [facility]. An attempt was made by the social work office to schedule an appointment for the patient; however, there was a water main break and this was unable to be performed as the office was closed. The patient understands that he needs to make this followup arrangement. FOLLOWUP CONCERNS: The patient is being discharged home today, 09/17/16. ACTIVITY LEVEL: As tolerated. DIET: Regular. CONDITION ON DISCHARGE: Stable. TIME SPENT: Thirty five minutes was spent discharging this patient. [id number]/[facility] #: [id number] MTDD
== END 2016-09-17 13:50 | disposition home or self-care (01) | DRG 812 ==
LOC: ED 02:09 → MED 11:18 → MERGE 09-15 15:00 → OBSVTOIN 09-15 15:00
PROVIDERS: ADMIT Internal Medicine; ATTEND Hospitalist
DX: T40.2X2A Poisoning by other opioids, intentional self-harm, initial encounter (principal); F25.1 Schizoaffective disorder, depressive type; F10.239 Alcohol dependence with withdrawal, unspecified; F32.9 Major depressive disorder, single episode, unspecified; Y90.9 Presence of alcohol in blood, level not specified; J45.909 Unspecified asthma, uncomplicated; Z81.8 Family history of other mental and behavioral disorders; Z82.49 Family history of ischemic heart disease and other diseases of the circulatory system; F17.200 Nicotine dependence, unspecified, uncomplicated; Z88.8 Allergy status to other drugs, medicaments and biological substances; E87.6 Hypokalemia; R79.89 Other specified abnormal findings of blood chemistry; Y92.9 Unspecified place or not applicable; Z56.0 Unemployment, unspecified; F22 Delusional disorders; F14.90 Cocaine use, unspecified, uncomplicated; F11.90 Opioid use, unspecified, uncomplicated
CPT/HCPCS: 36415; 80048; 80053; 80076; 80320; 80329; 83605; 83735; 85025; 93005; 94760; 99285; 99406; A9270-GY; G0480; J0780; J2060; J2310; J2405; J3411; J3480